=== PATIENT | male | born 1970 | race African-American/Black ===

== ENCOUNTER → 2018-05-17 | Outpatient (CLI) | payer BC, MEDICAID, OTHER | LOC: CARD 12:35 | PROVIDERS: ATTEND Internal Medicine Cardiovascular Disease | DX: I11.9 Hypertensive heart disease without heart failure (principal); R09.89 Other specified symptoms and signs involving the circulatory and respiratory systems; Z65.8 Other specified problems related to psychosocial circumstances | CPT/HCPCS: 93306 ==

== ENCOUNTER → 2021-04-25 | Outpatient (CLI) | payer OTHER | LOC: CARD 11:07 | PROVIDERS: ATTEND Physician Assistant | DX: I10 Essential (primary) hypertension (principal) | CPT/HCPCS: 93306 ==